=== PATIENT | male | born 1990 | race Caucasian/White ===

== ENCOUNTER 2024-06-10 03:34 | Emergency (ER) | payer MEDICAID, SELFPAY ==
[2024-06-10 03:34] VITALS: BMI 30.7
[2024-06-10 03:40] VITALS: BP 114/68; PULSE 108; RESP 20; TEMP 37.3; O2SAT 97
--- NOTE | 2024-06-10 03:55 | EKG_ITS ---
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
--- NOTE | 2024-06-10 03:55 | XR_ITS ---
Examination: PA lateral chest 2 views TECHNIQUE: Upright PA lateral chest 2 views Exam date and time: June 10, 2024 0414 hours Comparison September 28, 2009 INDICATIONS: Onset chest pain today. FINDINGS: Normal heart size Lungs are clear. The osseous structures are intact IMPRESSION: No active disease
--- NOTE | 2024-06-10 03:55 | PD.EDRME ---
Rapid Medical Screening Exam [facility] Arrival date/time: 06/10/24 03:34 34M with history of HIV (hasn't been taking antivirals for a while) presents to ED with several days of cough, CP, and SOB. Chief Complaint: Shortness of Breath/Dyspnea Vital signs: Vital Signs Temperature 99.2 F 06/10/24 03:40 Pulse Rate 108 H 06/10/24 03:40 Respiratory Rate 20 06/10/24 03:40 Blood Pressure 114/68 06/10/24 03:40 Pulse Oximetry (%) 97 06/10/24 03:40 Oxygen Delivery Method Room Air 06/10/24 03:40
[2024-06-10 04:50] LABS: Basophils % (Auto) 0 % (0-2.5); Eosinophils % (Auto) 0 % (0-10); Hematocrit 43.6 % (41.0-53.0); Hemoglobin 15.2 g/dL (13.5-16.0); Immature Granulocytes % (Auto) 1 % (0-0); Immature Granulocytes Auto 0.07 Thou/mm3 (0.00-0.00); Lymphocytes % (Auto) 18 % (10-50); Mean Corpuscular HGB Conc 34.9 g/dl (31.0-37.0); Mean Corpuscular Hemoglobin 29.3 pg (25.0-35.0); Mean Corpuscular Volume 84 fL (80-100); Monocytes # (Auto) 1.2 Thou/mm3 (0.0-0.8); Monocytes % (Auto) 11 % (0-12); Neutrophils # (Auto) 8.3 Thou/mm3 (1.8-7.7); Neutrophils % (Auto) 71 % (37-80); Nucleated Red Blood Cell % 0 /100 WBC (0); RDW Standard Deviation 39.1 fL (35.1-43.9); Red Blood Count 5.18 Miln/mm3 (4.50-5.90); White Blood Count 11.6 Thou/mm3 (3.8-10.6)
[2024-06-10 04:56] LABS: Platelet Count 16 Thou/mm3 (140-440)
[2024-06-10 05:14] LABS: B-Type Natriuretic Peptide < 20 pg/mL (0-100)
[2024-06-10 05:18] LABS: Slide Review Platelets confirmed
[2024-06-10 05:27] LABS: Alanine Aminotransferase 99 U/L (10-49); Albumin, Serum 4.4 gm/dL (3.5-5.0); Albumin/Globulin Ratio 1.3 (1.2-2.2); Alkaline Phosphatase 181 U/L (46-116); Anion Gap 7 (7-16); Aspartate Amino Transferase 143 U/L (0-34); BUN/Creatinine Ratio 9 Ratio (12-20); Blood Urea Nitrogen 11 mg/dL (9-23); Calcium 9.2 mg/dL (8.3-10.6); Calcium (Corrected) 9.2 mg/dL (8.5-10.1); Carbon Dioxide 28.5 mMol/L (20.0-31.0); Chloride 99 mMol/L (98-107); Creatinine (Component) 1.2 mg/dL (0.6-1.3); Estimated Creatinine Clearance 106.4 mL/min (>60); Globulin 3.3 gm/dL (2.3-3.5); Glucose 94 mg/dL (74-106); Osmolality,Calculated 267 (275-295); Potassium 3.6 mMol/L (3.4-5.1); Procalcitonin 0.11 ng/ml (0.0-0.49); Sodium 134 mMol/L (136-145); Total Protein 7.7 gm/dL (5.7-8.2); Troponin I < 0.002 ng/mL (0.0-0.045); eGFR > 60 See Note
[2024-06-10 05:56] LABS: Strep A Rapid Negative (Negative)
[2024-06-10 06:18] LABS: Lactate (Lactic Acid) 1.4 mMol/L (0.4-2.0)
[2024-06-10 06:36] LABS: INR 1.1 (0.9-1.3); Partial Thromboplastin Time 26.6 Seconds (22.0-36.0); Prothrombin Time 11.5 Seconds (9.0-12.2)
--- NOTE | 2024-06-10 07:11 | PC.NURSE ---
ASKED PT IF HE WAS ABLE TO GIVE A UA SAMPLE PT STATED HE WAS NOT ABLE TO. I INFORMED PT WERE JUST WAITING FOR HIS UA
--- NOTE | 2024-06-10 09:29 | PC.NURSE ---
patient eloped from [facility]
[2024-06-10 13:43] LABS: Cocci Serology, IgM Negative (Negative)
[2024-06-11 12:03] LABS: Cocci Serology, IgG Negative (Negative)
== END 2024-06-10 09:32 | disposition left against medical advice (07) ==
LOC: SERX 04:31
PROVIDERS: Physician Assistant; Emergency Provider Emergency Medicine; PCP Nurse Practitioner Family
DX: R05.9 Cough, unspecified (principal); R07.9 Chest pain, unspecified; R06.02 Shortness of breath; R00.0 Tachycardia, unspecified; Z53.29 Procedure and treatment not carried out because of patient's decision for other reasons
CPT/HCPCS: 36415; 71046; 80053; 80307; 81001; 83605; 83880; 84145; 84484; 85025; 85610; 85730; 86331; 86635; 87040; 87400; 87651; 87811; 93005; 99281

== ENCOUNTER 2024-11-02 15:18 | Emergency (ER) | payer MEDICAID, SELFPAY ==
[2024-11-02 15:21] VITALS: BMI 30.7
[2024-11-02 15:42] VITALS: BP 120/75; PULSE 89; RESP 18; TEMP 36.6; O2SAT 99
--- NOTE | 2024-11-02 16:15 | EDNOTE_ITS ---
ED Wound/Laceration-RME/HPI General Chief Complaint: Wound/Laceration Stated Complaint: Laceration to the right hand Time Seen by Provider: 11/02/24 15:33 Source: patient Arrival date/time: 11/02/24 15:18 34-year-old male with no known medical history presents to the emergency room with a chief complaint of a laceration to his right hand that occurred while working on an AC unit and being cut by the fan. Mode of arrival: ambulatory Limitations: no limitations Related Data Previous Rx's ?Medication ?Instructions ?Recorded cephalexin 500 mg capsule 500 mg PO BID 7 days #14 cap s 11/02/24 Allergies Allergy/AdvReac Type Severity Reaction Status Date / Time Penicillins AdvReac Mild Rash Verified 11/02/24 15:23 Review of Systems Review of Systems Systems Reviewed: All systems reviewed, normal except as documented Constitutional Constitutional: Reports system reviewed and no additional complaints, except as documented, Denies fatigue, Denies fever(s), Denies headache(s) and Denies weakness Eyes Eyes: Reports system reviewed and no additional complaints, except as documented, Denies blurry vision and Denies change in vision ENT Ears, Nose, Mouth, and Throat: Reports system reviewed and no additional complaints, except as documented, Denies otalgia, Denies headache(s), Denies nasal congestion, Denies throat swelling and Denies vertigo Cardiovascular Cardiovascular: Reports system reviewed and no additional complaints, except as documented, Denies chest pain, Denies dyspnea and Denies dyspnea on exertion Respiratory Respiratory: Reports system reviewed and no additional complaints, except as documented, Denies chest congestion, Denies cough, Denies dyspnea, Denies dyspnea on exertion and Denies wheezing Gastrointestinal Gastrointestinal: Reports system reviewed and no additional complaints, except as documented, Denies abdominal pain, Denies cramping, Denies nausea and Denies vomiting Genitourinary Genitourinary: Reports system reviewed and no additional complaints, except as documented, Denies dysuria and Denies hematuria Musculoskeletal Musculoskeletal: Reports system reviewed and no additional complaints, except as documented and Denies back pain Integumentary/Breasts Skin/Breast: Reports system reviewed and no additional complaints, except as documented and Reports wounds Neurologic Neurologic: Reports system reviewed and no additional complaints, except as documented, Denies confusion, Denies headache(s), Denies lack of coordination, Denies vertigo and Denies weakness Psychiatric Psychiatric: Reports system reviewed and no additional complaints, except as documented, Denies anxiety, Denies confusion, Denies depression, Denies paranoia, Denies suicidal ideation and Denies tactile hallucinations Endocrine Endocrine: Reports system reviewed and no additional complaints, except as documented and Denies fatigue Hematologic/Lymphatic Hematologic/Lymphatic: Reports system reviewed and no additional complaints, except as documented and Denies lymphadenopathy Allergic/Immunologic Allergic/Immunologic: Reports system reviewed and no additional complaints, except as documented, Denies throat swelling, Denies urticaria and Denies wheezing ED Exam General Limitations: Present no limitations General appearance: Present alert and in no apparent distress Head Head exam: Present atraumatic Eye Eye exam: Present normal appearance, PERRL and EOMI ENT ENT exam: Present normal exam, normal oropharynx and mucous membranes moist Neck Neck exam: Present normal inspection, full ROM and trachea midline Chest Chest inspection: Present normal inspection and symmetric chest wall rise Respiratory Respiratory exam: Present normal lung sounds bilaterally Cardiovascular Cardiovascular exam: Present regular rate, normal rhythm and normal heart sounds Abdominal Exam Abdominal exam: Present soft and normal bowel sounds Extremities Exam Extremities exam: Present normal inspection and full ROM Expanded Upper Extremity Exam Shoulder exam: Present normal inspection Arm exam: Present normal inspection Elbow exam: Present normal inspection Forearm/Wrist exam: Present normal inspection, tenderness and laceration Hand L/R back image: 2 1. Sick centimeter laceration that occurred while working on an AC fan. The wound is to the dermis layer. There is no tendon involvement patient is able to move all extremities. Back Exam Back exam: Present normal inspection and full ROM Neurological Exam Neurological exam: Present alert, oriented X3 and CN II-XII intact Psychiatric Psychiatric exam: Present normal affect and normal mood Skin Skin exam: Present warm, dry, intact and normal color Course Quality Measures none Orders Category Date Time Status Set Up Suture Tray STAT Care 11/02/24 15:33 Active Wound Care NOW Care 11/02/24 15:33 Active Lidocaine 1% 20 ml [Xylocaine 1% 20 ML] Med 11/02/24 15:33 Discontinued 20 ml INFL X1 ONE TET,DIP/PERT AC (Adult)-Tdap [Boostrix Adult (Tdap) Med 11/02/24 15:33 Discontinued Vacc] 0.5 ml IMI .ONCE ONE Vital Signs Vital signs: Vital Signs Temperature 97.9 F 11/02/24 15:42 Pulse Rate 89 11/02/24 15:42 Respiratory Rate 18 11/02/24 15:42 Blood Pressure 120/75 11/02/24 15:42 Pulse Oximetry (%) 99 11/02/24 15:42 Oxygen Delivery Method Room Air 11/02/24 15:42 O2 saturation 99% within normal limits Procedures -ED Laceration Laceration 1: Site: hand Side (If applicable): right Size (cm): 6 Description: linear, flap and irregular Depth: simple, single layer and involves muscle layer Local Anesthetic: lidocaine 1% Amount of anesthesia used (mL): 6 Pre-repair: wound explored and irrigated extensively Skin layer closed with: nylon Size (cm): 4-0 Number of sutures: 9 Technique: simple, interrupted Wound / Laceration MDM Narrative MDM Narrative:: 34-year-old male with no known medical history presents to the emergency room with a chief complaint of a laceration to his right hand that occurred while working on an AC unit and being cut by the fan. Patient is hemodynamically stable and in no apparent distress Physical examination shows a 6 cm laceration to the right hand near the thumb. There is no tendon involvement. The laceration occured 1 hour ago The mechanism of injury was while fixing an AC unit and being cut by the fan of the AC unit. Sensation is intact. There is full ROM. There is no exposed tendons. No foreign bodies. Lidocaine 1% was used for anesthesia. The wound was irrigated extensively with normal saline. The wound was cleaned and prepped with Betadine. 9 sutures were placed. A dressing was placed. There were no complications. Patient was educated to keep the area clean and dry for 24 hours, then clean daily with soap and water. Patient was educated to return for any signs of infection including swelling pain redness pus or fever and to make an appointment with primary care provider in 48 hours. Patient was educated to follow up with primary or return to emergency room for suture removal in the next 7-10 days. Patient data External records reviewed:: [facility] previous records Clinical information provided by:: patient Social determinants that could affect healthcare access:: none Patient has the following chronic illnesses:: No chronic illness How is presenting disease/condition affected by chronic disease/condition?: no chronic disease Evaluation data The following diagnostics were reviewed and interpreted by me:: lab results and radiology exam(s) Lab and/or radiology exams considered but not ordered:: Labs and radiology exams considered and ordered Interpretation Summary: N/A Medications / Prescriptions Medications or Prescriptions considered but not ordered:: Medication given Medication administrations:: Medication Administration History Discontinued Medications Diphtheria/Tetanus/Acell Pertussis (Diphth,Pertuss(Acell),Tet Vac 0.5 Ml Syr- Adult) 0.5 ml IMi .ONCE ONE Stop: 11/02/24 15:34 Lidocaine HCl (Lidocaine Hcl 1% 20 Ml Vial) 20 ml INFL X1 ONE Stop: 11/02/24 15:34 Medication given Consultations Consultation(s) initiated? (list below): No Diagnosis Wound Differential Diagnosis: laceration, abrasion and avulsion of skin Most likely diagnosis given after review of the tests above:: laceration Admission Indicated Admission indicated?: not indicated Admission Request Was there a request for admission?: No Disposition Plan Disposition Plan: Discharge Discharge Attestation Discharge Attestation: The patient and all family members were given an opportunity to ask questions and understood the discharge instructions. Discharge instructions specifically effects, indications for sooner follow up or return to the emergency department, and the expected course of current diagnosis. Patient condition: Stable Discharge Plan Plan Patient Disposition: HOME (Self Care) Disposition Comment: Stable Prescriptions/Referrals Prescriptions/Med Rec: New cephalexin 500 mg capsule 500 mg PO BID 7 Days Qty: 14 0RF Problem List Clinical Impression: Laceration Patient/Caregiver Discharge Instructions Additional Instructions: Please follow-up with your primary care provider in the next 24 to 48 hours. You can return in 7 to 10 days for suture removal. Antibiotics are sent to your pharmacy please pick them up and take them as indicated. For any evidence of worsening signs or symptoms such as the redness, pus draining from the site, warmth, you can return to the emergency room. Print Language: Citizen Of [place] Stand Alone Forms: [employer] Award Info., Work/School Release, Patient Portal Info Letter FARZAD/TERI Supervising Physician FARZAD/TERI Supervising Physician: Dr Huerta
--- NOTE | 2024-11-02 16:46 | PC.NURSE ---
PATIENT LEFT WITHOUT TDAP IMMUNIZATION AND WITHOUT REVIEWING D/C PAPERWORK. ATTEMPTED TO CALL PATIENT BUT PHONE WAS DISCONNECTED. PROVIDER AWARE
== END 2024-11-02 16:48 | disposition home or self-care (01) ==
LOC: SERX 16:07
PROVIDERS: Emergency Provider Emergency Medicine; PCP Family Medicine
DX: S61.411A Laceration without foreign body of right hand, initial encounter (principal); W45.8XXA Other foreign body or object entering through skin, initial encounter
CPT/HCPCS: 12002; 99283